=== PATIENT | female | born 1990 | race Caucasian/White ===

== ENCOUNTER 2019-08-01 16:21 | Emergency (ER) | payer SELFPAY ==
[~2019-08-01] VITALS: Ht 162.6 cm; Wt 54.5 kg
[2019-08-01 16:30] VITALS: BP 137/82; PULSE 77; TEMP 98.3
[2019-08-01] MEDS ORDERED: SINGULAIR 110 MG/TAB PO (16:53)
[2019-08-01] MEDS ORDERED: LEVOXYL0.025 MG PO (16:53)
[2019-08-01] MEDS ORDERED: VITAMINC1000TA (16:54)
[2019-08-01] MEDS ORDERED: CALCIUM CITRAT200 M2 (16:54)
[2019-08-01] MEDS ORDERED: VITAMIND3 5000 PO (16:55)
[2019-08-01] MEDS ORDERED: EPA FISH OIL1 SGL PO (16:55)
[2019-08-01] MEDS ORDERED: PROBIOTIC-MAJOR PO (16:56)
[2019-08-01] MEDS ORDERED: FLONASEALLERGY NS (16:57)
[2019-08-01] MEDS ORDERED: PERIDEX (CHLOR480 ML MM (16:57)
[2019-08-01] MEDS ORDERED: QVAR REDIHALE10.6 G1 IH (16:57)
[2019-08-01] MEDS ORDERED: BENADRYL25 M2 PO (16:58)
[2019-08-01] MEDS ORDERED: ESKALITH C450 MG/TAB PO (16:58)
[2019-08-01] MEDS ORDERED: SPRINTEC 35 MCG1 TAB PO (16:58)
[2019-08-01] MEDS ORDERED: PROAIR HFA0.09 MG/AC IH (16:59)
[2019-08-01] MEDS ORDERED: XANAX .25M0.25 MG/TA PO (16:59)
[2019-08-01] MEDS ORDERED: ADVIL200 MG PO (17:00)
[2019-08-01] MEDS ORDERED: MUCINEX 60600 MG/TA1 PO (17:00)
[2019-08-01] MEDS ORDERED: PRIL40 PO (17:01)
[2019-08-01] MEDS ORDERED: TYLENOL 500MG500 MG PO (17:01)
[2019-08-01] MEDS ORDERED: MIRALAX PA17 GM/Dose PO (17:01)
== END 2019-08-01 16:50 | disposition home or self-care (01) ==
LOC: COL.ER 16:21
DX: S09.90XA Unspecified injury of head, initial encounter (principal); R40.2412 Glasgow coma scale score 13-15, at arrival to emergency department; W50.0XXA Accidental hit or strike by another person, initial encounter